=== PATIENT | female | born 1955 | race Caucasian/White ===

== ENCOUNTER → 2016-07-28 | Outpatient (CLI) | payer OTHER ==
[~2016-07-28] MED LIST: ACET500C5 PO; ASPI-781 PO; BACTDS PO; CEPH-443 PO; DESM0.1T PO; INSU100V27 SC; LANT3I SC; WALK1EAC23 MC
--- NOTE | 2016-07-28 11:31 | RADRPT ---
PROCEDURE: XR right knee. CLINICAL INDICATION: Knee pain TECHNIQUE: AP weightbearing, lateral weightbearing and sunrise views are available for review. COMPARISON: 12/03/2015 FINDINGS: Again demonstrated is the ORIF of the inferior transverse patellar fracture with 1.2 cm of diastases . There are 2 fractures of the inferior wire loop. There is no change in the too horizontal screws in the tibial tubercle. There is a small suprapatellar joint effusion. The osseous structures are normal in mineralization, architecture and alignment. No other fractures are identified. No osseous lesions are identified. There is mild osteoarthrosis involving the pat ellofemoral compartment and the medial tibial femoral compartment. The soft tissues are unremarkabl e. IMPRESSION: ORIF of the inferior transverse patellar fracture with 1.2 cm of diastases. 2 fractures of the infer ior wire loop Small suprapatellar joint effusion Mild osteoarthrosis involving the patellofemoral compartment and the medial tibial femoral compartme nt RPTAT: HGDB .Félix Arzola MD, MD Date Time Electronically viewed and signed by .Félix Arzola MD, on 07/28/2016 11:31 .B/
== END | disposition home or self-care (01) ==
LOC: HKI 09:53
PROVIDERS: ATTEND Orthopaedic Surgery
DX: S82.001K Unspecified fracture of right patella, subsequent encounter for closed fracture with nonunion (principal); Z96.652 Presence of left artificial knee joint
CPT/HCPCS: 73562; G0463

== ENCOUNTER → 2017-01-05 | Outpatient (CLI) | payer OTHER ==
--- NOTE | 2017-01-05 15:23 | RADRPT ---
PROCEDURE: XR Knees. CLINICAL INDICATION: Bilateral knee pain. TECHNIQUE: Total of six views. Frontal, oblique, and lateral views of both knees. COMPARISON: Right knee radiographs dated 07/28/2016. Left knee radiographs dated 12/03/2015. FINDINGS: There is an old open reduction and internal fixation of the right patella with 2 cm diastases, simil ar to the prior study. There are fractures of the inferior wire. The vertical pins in the patella are outside the inferior bone fragment. There are 2 screws in the proximal right tibia. There is no other fracture or dislocation. On the left side, there is a total knee arthroplasty which appears satisfactory with no fracture, di slocation, or loosening. There is no lytic or blastic lesion. IMPRESSION: 1. Prior bilateral knee surgery as described above, similar to the prior studies. RPTAT: QQ .Alli Jaeger MD, MD Date Time Electronically viewed and signed by .Alli Jaeger MD, on 01/05/2017 15:23 .R/
== END | disposition home or self-care (01) ==
LOC: HKI 08:43
PROVIDERS: ATTEND Orthopaedic Surgery
DX: M25.461 Effusion, right knee (principal); S82.001K Unspecified fracture of right patella, subsequent encounter for closed fracture with nonunion; Z96.652 Presence of left artificial knee joint
CPT/HCPCS: 20610; 73562; G0463

== ENCOUNTER 2017-03-31 09:40 | Emergency (ER) | payer OTHER ==
[~2017-03-31] VITALS: Ht 165.1 cm; Wt 85.0 kg
[2017-03-31 09:42] VITALS: Ht 165.1 cm; Wt 85.0 kg
[2017-03-31] MEDS ORDERED: KETOROLAC 30 MG INJ IM STA (10:03)
--- NOTE | 2017-03-31 11:15 | RADRPT ---
PROCEDURE: XR Right Ankle. CLINICAL INDICATION: ankle pain TECHNIQUE: AP, oblique and lateral views of the right ankle were performed. COMPARISON: None. FINDINGS: There is bimalleolar soft tissue swelling. There is narrowing of the ankle joint. Noted is an old he aled fracture of the distal tibia with an internal fixator plate and screws on the dorsal aspect. Th ere is periostitis bridging the old fracture. Small calcifications are seen distal to the medial mal leolus. No acute fracture is present. IMPRESSION: Bimalleolar soft tissue swelling right ankle. Status post open reduction internal fixation distal ti bial fracture with residual deformity. Small ossifications distal to the medial malleolus. Question nonunion old fracture versus sesamoid bones. Osteoarthritic narrowing of the ankle joint. .Josiah Michael MD, Date Time Electronically viewed and signed by .Josiah Michael MD, on 03/31/2017 11:15 .A/
--- NOTE | 2017-03-31 11:16 | RADRPT ---
PROCEDURE: XR Foot. CLINICAL INDICATION: Right foot pain TECHNIQUE: AP, lateral and oblique views of the right foot was obtained. The images were reviewed on a PACS workstation. COMPARISON: None. FINDINGS: There has been either amputation or congenital absence of the distal fifth phalanx. No acute fractur e, dislocation, or subluxation. The joint spaces are preserved. Bone mineralization is normal. No si gnificant soft tissue swelling is seen. IMPRESSION: No acute abnormality right foot. .Josiah Michael MD, MD Date Time Electronically viewed and signed by .Josiah Michael MD, on 03/31/2017 11:16 .A/
--- NOTE | 2017-03-31 11:19 | RADRPT ---
PROCEDURE: RIGHT knee x-ray CLINICAL INDICATION: knee pain TECHNIQUE: AP, lateral and oblique views of the knee were obtained. COMPARISON: Right knee radiograph January 05, 2017 FINDINGS: Patient is status post open reduction internal fixation of a patellar fracture with K-wires and surg ical wires. There is a separation through the inferior wire. There is separation of the inferior fra cture fragment. Noted is a suprapatellar effusion. The knee joint is intact with anatomic alignment. No loose bodies are present. There are no abnormal articular or periarticular calcifications. No ma rginal erosions or osteophytes are present. There is no acute fracture. 2 surgical screws are seen i n the tibial tuberosity. IMPRESSION: Suprapatellar effusion right knee. No acute abnormality. Status post open reduction internal fixatio n of patellar fracture with separation of the fracture fragments. .Josiah Michael MD, Date Time Electronically viewed and signed by .Josiah Michael MD, on 03/31/2017 11:18 .A/
[2017-03-31] MEDS ORDERED: HYDR-906 PO (11:39)
[2017-03-31] MEDS ORDERED: morphine 4 MG/ML VIAL IM STA (11:42)
[2017-03-31] MEDS ORDERED: ONDANSETRON (ODT) 4 MG TAB ODT STA (11:42)
--- NOTE | 2017-03-31 12:22 | ERD ---
ER Documentation Chief Complaint Chief Complaint Complains of right knee pain x 3 weeks ago HPI This is a 62-year-old female presents to the ER complaining of right knee pain that radiates down into her right lower leg, ankle and foot. Since that pain is throbbing in quality and states that sometimes it feels like it is burning. Pain has been going on for the last week and has been getting worse throughout the days. Patient has not tried anything for the pain. She had surgery 2 years ago to fix fractures in her knee and ankle. Since saw her orthopedic doctor about 3 weeks ago and was told she was developing arthritis and would need a right sided total knee replacement. She does not have any fevers or chills. She denies any numbness or tingling of her lower extremity.She has not Had any new trauma. ROS 12 point review of systems was done, all negative except per HPI. Medications Home Meds Active Scripts Hydrocodone/Acetaminophen ([place] 5-325 Tablet) 1 Each Tablet, 1 TAB PO Q6H Y for PAIN, #20 TAB Prov:MAGDALENA EISENBERG 03/31/17 Acetaminophen* (Tylophen*) 500 Mg Capsule, 1 CAP PO Q4 Y for PAIN AND OR ELEVATED TEMP, #20 CAP Prov:BOB FOSTER PA-C 01/15/16 Sulfamethoxazole-Trimethoprim* (Bactrim* DS) 800-160 Mg Tab, 1 TAB PO BID for 10 Days, TAB Prov:BOB FOSTER PA-C 01/15/16 Cephalexin* (Keflex*) 500 Mg Capsule, 500 MG PO QID for 10 Days, CAP Prov:BOB FOSTER PA-C 01/15/16 Desmopressin Acetate (Desmopressin Acetate) 0.1 Mg Tab, 0.05 MG PO BID for 30 Days, TAB 1 Refill Prov:SIENNA MADDEN MD 05/27/15 Front Wheel Walker* (Front Wheel Walker*) 1 Each Dme, 1 EACH MC DIRECTED, #1 DME 0 Refills Prov:AZIZA UGALDE 05/27/15 Aspirin* (Ecotrin*) 325 Mg Tabec, 325 MG PO BID, #90 Prov:AZIZA UGALDE 01/13/15 Front Wheel Walker* (Front Wheel Walker*) 1 Each Dme, 1 EACH MC DIRECTED, #1 DME 0 Refills Prov:AZIZA UGALDE 01/13/15 Reported Medications Insulin Lisp Protam/Lisp Human* (Humalog Mix (75/25)*) 100 Units/Ml Susp, 0 SC BEFORE MEALS, EA 01/12/15 Insulin Glargine* (Lantus*) 100 Unit/Ml Soln, 25 UNIT SC HS, EA 01/12/15 Allergies Allergies: Coded Allergies: acarbose (Verified Allergy, Unknown, 10/25/15) metformin (Verified Allergy, Unknown, 10/25/15) PMhx/Soc History of Surgery: Yes (R foot heel surgery w/ skin grafting for diabetic ulcer) Anesthesia Reaction: No Hx Neurological Disorder: Yes (Neuropathy) Hx Respiratory Disorders: No Hx Cardiac Disorders: Yes (HTN) Hx Psychiatric Problems: No Hx Miscellaneous Medical Probl: Yes (DM) Hx Alcohol Use: No Hx Substance Use: No Hx Tobacco Use: No Smoking Status: Never smoker Physical Exam Vitals Vital Signs Date Time Temp Pulse Resp B/P Pulse Ox O2 Delivery O2 Flow Rate FiO2 03/31/17 09:42 97.0 98 20 123/59 98 Physical Exam GENERAL: The patient is well developed and appropriate for usual state of health , in no apparent distress. HEENT: Atraumatic CHEST: Clear to auscultation bilaterally. There are no rales, wheezes or rhonchi. HEART: Regular rate and rhythm. No murmurs, clicks, rubs or gallops. EXTREMITIES: Right knee: Patient has pain to the knee when bearing weight. No surface trauma. No overlying erythema or warmth. The right knee is without obvious asymmetry when compared to the left knee, she has a scar from previous surgery. Patient is able to deep bend. she is able to fully extend knee, internal and external rotation. ttp to the lateral knee, with a mild effusions. tender over the lateral joint line not tender the medial or lateral tibial plateau. Not tender to palpation over the proximal fibular head. No quadricep tenderness. No laxity of the ACL, PCL, MCL or LCL. Negative Bhakti test. Negative anterior and posterior drawer. Distal motor neurovascular status intact. +2 radial and ulnar pulses. Normal capillary refill. Patient has ttp to the lateral and medial malleolus, + tarsal twist test. TTP over the heel of the foot. there is no erythema or warmth. NEURO: Alert and oriented SKIN: The skin is warm and dry. Results 24 hrs Current Medications Medications (Trade) Dose Ordered Sig/Rosario Route PRN Reason Start Time Stop Time Status Last Admin Dose Admin Ketorolac Tromethamine (Toradol) 30 mg ONCE STAT IM 03/31/17 10:03 03/31/17 10:04 DC 03/31/17 10:15 Morphine Sulfate (morphine) 4 mg ONCE STAT IM 03/31/17 11:42 03/31/17 11:43 DC 03/31/17 11:56 Ondansetron HCl (Zofran Odt) 4 mg ONCE STAT ODT 03/31/17 11:42 03/31/17 11:43 DC 03/31/17 11:56 Procedures/MDM Differential diagnosis includes but is not limited to knee contusion, knee sprain, ligament injury, patellar dislocation, joint dislocation, patellar or tibial plateau fracture, Lara's cyst, DVT, meniscus tear, prepatellar bursitis , septic joint, gout, tumor. This is a 62-year-old female presents to the ER with knee pain that radiates down her leg. Patient does have previous surgeries , and arthritis the cause of her pain. She is afebrile and extremely well- appearing she does have full range of motion of her knee and ankle. Suspicion for septic joint is low. She does not have any new trauma, suspicion for fractures or dislocations is low. Patient will be sent home with [place]. She is to follow-up with her primary care doctor within 1-2 days or to ER sooner if symptoms worsen.My medical Decision making was shared with the patient she understands and agrees with plan Departure Diagnosis: Primary Impression: Lower extremity pain Condition: Stable Patient Instructions: Reducing Knee Pain and Swelling Additional Instructions: Llame al doctor MAANA y michelet carmen QUIQUE PARA DENTRO DE 1-2 NELSON.Dgale a la secretaria que nosotros le instruimos hacer esta quique.Avise o llame si [place] condicin se empeora antes de la quique. Regresa aqui si peor o no mejor. MAGDALENA EISENBERG Mar 31, 2017 12:22
== END 2017-03-31 12:17 | disposition home or self-care (01) ==
LOC: FTE 09:40
DX: M25.561 Pain in right knee (principal); I10 Essential (primary) hypertension; E11.9 Type 2 diabetes mellitus without complications; Z79.4 Long term (current) use of insulin; Z79.82 Long term (current) use of aspirin
CPT/HCPCS: 73562; 73610; 73630; J1885; J2270; 96372